=== PATIENT | male | born 1985 | race African-American/Black ===

== ENCOUNTER 2024-12-10 20:04 | Emergency (ER) | payer SELFPAY ==
[2024-12-10] MEDS: TOPICAL SKIN ADHESIVE 1 EACH AMP TOPICAL ONE (20:50)
[2024-12-10] MEDS: CEPHALEXIN 500 MG CAP PO STA (20:50)
--- NOTE | 2024-12-10 21:06 | ED ---
General Adult HPI - General Chief complaint: Wound/Laceration Stated complaint: Left Finger Laceration Source: patient Mode of arrival: ambulatory Limitations: no limitations - History of Present Illness Initial comments: This is a 39-year-old male presenting for left ring finger laceration (12/19) occurring about 1 hour ago. Patient states he was working with a hedge tremor when he accidentally cut his finger. States tetanus vaccination is up-to-date. Endorses normal range of motion of the finger with no other significant injury. Onset/Timin -: hour(s) Location: left, upper extremity Radiation: non-radiation Severity scale (1-10): 8 Consistency: constant Associated Symptoms: denies other symptoms - Related Data Previous Rx's Medication Instructions Recorded Bacitracin/Polymyx Oint 1 applic TOPICAL BID #22 gm 12/10/24 [Polysporin Oint] Cephalexin [Keflex] 500 mg PO Q6HR 1 Days #12 cap 12/10/24 Ibuprofen [Motrin] 800 mg PO Q8HR PRN #30 tab 12/10/24 Allergies Allergy/AdvReac Type Severity Reaction Status Date / Time No Known Allergies Allergy Verified 12/10/24 20:13 Review of Systems ROS Statement: Those systems with pertinent positive or pertinent negative responses have been documented in the HPI. ROS Other: All systems not noted in ROS Statement are negative. Past Medical History Past Medical History: No Reported History History of Any Multi-Drug Resistant Organisms: None Reported Past Surgical History: No Surgical Hx Reported Past Psychological History: No Psychological Hx Reported Smoking Status: Never smoker Past Alcohol Use History: None Reported Past Drug Use History: None Reported General Exam Limitations: no limitations General appearance: alert, in no apparent distress Head exam: Present: atraumatic, normocephalic, normal inspection Eye exam: Present: normal appearance, PERRL, EOMI. Absent: scleral icterus, conjunctival injection, periorbital swelling ENT exam: Present: normal exam, mucous membranes moist Neck exam: Present: normal inspection. Absent: tenderness, meningismus, lymphadenopathy Respiratory exam: Present: normal lung sounds bilaterally. Absent: respiratory distress, wheezes, rales, rhonchi, stridor Cardiovascular Exam: Present: regular rate, normal rhythm, normal heart sounds. Absent: systolic murmur, diastolic murmur, rubs, gallop, clicks GI/Abdominal exam: Present: soft, normal bowel sounds. Absent: distended, tenderness, guarding, rebound, rigid Extremities exam: Present: full ROM, normal capillary refill, other (Superficial avulsion/laceration of tip of left ring finger. Flap appears poorly perfused with pallor. No damage to nail. 0.5 cm vertical laceration at tip of left middle finger without bleeding or damage to the nail.). Absent: pedal edema, joint swelling, calf tenderness Back exam: Present: normal inspection Neurological exam: Present: alert, oriented X3, CN II-XII intact Psychiatric exam: Present: normal affect, normal mood Skin exam: Present: warm, dry, intact, normal color. Absent: rash Course Vital Signs 12/10/24 12/10/24 20:10 21:38 Temperature 98.5 F 97.8 F Pulse Rate 57 L 54 L Respiratory 18 14 Rate Blood Pressure 181/116 149/98 O2 Sat by Pulse 99 100 Oximetry Medical Decision Making - Medical Decision Making Was pt. sent in by a medical professional or institution (, PA, PRODUCTION OR PLANT ENGINEER, urgent care, hospital, or senior living...) When possible be specific @ -No Did you speak to anyone other than the patient for history (EMS, parent, family, police, friend...)? What history was obtained from this source @ -No Did you review nursing and triage notes (agree or disagree)? Why? @ -I reviewed and agree with nursing and triage notes Were old charts reviewed (outside hosp., previous admission, EMS record, old EKG, old radiological studies, urgent care reports/EKG's, senior living records)? Report findings @ -No old charts were reviewed Differential Diagnosis (chest pain, altered mental status, abdominal pain women, abdominal pain men, vaginal bleeding, weakness, fever, dyspnea, syncope, headache, dizziness, GI bleed, back pain, seizure, CVA, palpatations, mental health, musculoskeletal)? @ -Differential Musculoskeletal Muscular strain, contusion, ligament sprain, fracture, arthritis, septic arthritis, bursitis, cellulitis, muscle spasm, nerve compression, DVT, arterial occlusion, herpes zoster, electrolyte abnormality, tumor.... This is not meant to be in all inclusive list EKG interpreted by me (3pts min.). @ -Not done X-rays interpreted by me (1pt min.). @ -None done CT interpreted by me (1pt min.). @ -None done U/S interpreted by me (1pt. min.). @ -None done What testing was considered but not performed or refused? (CT, X-rays, U/S, labs)? Why? @ -None What meds were considered but not given or refused? Why? @ -Patient provided T3 starter pack for breakthrough pain but declined. Did you discuss the management of the patient with other professionals (professionals i.e. DrSajan, PA, PRODUCTION OR PLANT ENGINEER, lab, RT, psych nurse, social welfare clerk, criminal lawyer, teacher, hotel security officer, counter caser)? Give summary @ -No Was smoking cessation discussed for >3mins.? @ -No Was critical care preformed (if so, how long)? @ -No Were there social determinants of health that impacted care today? How? (Homelessness, low income, unemployed, alcoholism, drug addiction, transportation, low edu. Level, literacy, decrease access to med. care, halfway, rehab)? @ -No Was there de-escalation of care discussed even if they declined (Discuss DNR or withdrawal of care, Hospice)? DNR status @ -No What co-morbidities impacted this encounter? (DM, HTN, Smoking, COPD, CAD, Cancer, CVA, ARF, Chemo, Hep., AIDS, mental health diagnosis, sleep apnea, morbid obesity)? @ -None Was patient admitted / discharged? Hospital course, mention meds given and r oute, prescriptions, significant lab abnormalities, going to OR and other pertinent info. @ -Laceration flushed copiously, Dermabond used prior to removal of poorly perfused avulsion flap. Patient provided p.o. Keflex, Tylenol and IM Toradol. Keflex, Motrin and bacitracin ointment sent to patient's pharmacy. Acute wound care instructions provided to patient. Discussed patient with Dr. Ortiz. Undiagnosed new problem with uncertain prognosis? @ -No Drug Therapy requiring intensive monitoring for toxicity (Heparin, Nitro, Insulin, Cardizem)? @ -No Were any procedures done? @ -Ring finger laceration initially adhered with Dermabond after flushing with 1 L of sterile water. Poorly perfused avulsion flap subsequently removed using scalpel without pain or significant bleeding.. Diagnosis/symptom? @ -Finger laceration Acute, or Chronic, or Acute on Chronic? @ -Acute Uncomplicated (without systemic symptoms) or Complicated (systemic symptoms)? @ -Uncomplicated Side effects of treatment? @ -No Exacerbation, Progression, or Severe Exacerbation? @ -No Poses a threat to life or bodily function? How? (Chest pain, [place], [place], pneumonia, PE, COPD, DKA, ARF, appy, cholecystitis, CVA, Diverticulitis, Homicidal, Suicidal, threat to staff... and all critical care pts) @ -No Disposition Clinical Impression: Laceration Disposition: HOME SELF-CARE Condition: Good Instructions (If sedation given, give patient instructions): Acute Wound Care (ED), Skin Adhesive Care (ED) Additional Instructions: Keep wound clean with antibacterial soap and water followed by application of antibacterial ointment and Band-Aid at least twice daily. Return to ER if experiencing worsening pain, discharge, fevers/chills. Prescriptions: Cephalexin [Keflex] 500 mg PO Q6HR 1 Days #12 cap Ibuprofen [Motrin] 800 mg PO Q8HR PRN #30 tab PRN Reason: Pain Bacitracin/Polymyx Oint [Polysporin Oint] 1 applic TOPICAL BID #22 gm Is patient prescribed a controlled substance at d/c from ED?: No Referrals: None,Stated [Primary Care Provider] - 1-2 days Vikash May MD [STAFF PHYSICIAN] - 1-2 days Time of Disposition: 21:06
[2024-12-10] MEDS: BACITRACIN OINT 1 EACH PACKET TOPICAL ONE (21:14)
[2024-12-10] MEDS: ACET/COD 300 MG/30 MG STARTER PACK TAB BTL PO STA (21:14)
[2024-12-10] MEDS: ACETAMINOPHEN TAB 500 MG TAB PO STA (21:14)
[2024-12-10] MEDS: KETOROLAC 15 MG/ML 1 ML VIAL IM STA (21:15)
[2024-12-10] MEDS: KETOROLAC 15 MG/ML 1 ML VIAL IVP STA (21:18)
[2024-12-10 21:48] VITALS: BP 149/98; PULSE 54; RESP 14; TEMP 97.8
== END 2024-12-10 21:38 | disposition home or self-care (01) ==
LOC: EC 20:04
DX: S61.215A Laceration without foreign body of left ring finger without damage to nail, initial encounter (principal); W29.3XXA Contact with powered garden and outdoor hand tools and machinery, initial encounter
CPT/HCPCS: 12001; 99282